=== PATIENT | male | born 1975 | race Caucasian/White ===

== ENCOUNTER → 2019-11-19 12:21 | Outpatient (CLI) | payer OTHER, SELFPAY ==
--- NOTE | 2019-11-19 12:26 | DI.CT.S_ITS ---
PROCEDURE: CT LE LT W CON INDICATIONS: Other specified acquired deformities of musculoske TECHNIQUE: Noncontrast 1-1.5 mm axial sections acquired from above the tibiotalar joint to the bottom of the calcaneus, with coronal and sagittal reformats. COMPARISON: None. FINDINGS: Image quality: Excellent. Bones: No fracture identified. Posterior calcaneal spurring. Chronic corticated ossicle seen adjacent to the anterior aspect of the lateral malleolus. This measures 9 mm Subchondral cystic changes present within the lateral aspect of the talar dome. Soft tissues: Unremarkable appearance of the muscles and visualized tendons. No tibiotalar joint effusion identified IMPRESSION: Prominent subchondral cystic changes involving the lateral talar dome. Further evaluation with MRI could be performed as clinically warranted Posterior calcaneal spurring Chronic corticated ossicle seen adjacent to the anterior aspect of the lateral malleolus. Recommend clinical correlation to exclude possibility of anterolateral impingement. Dictated by: Mode Anderson M.D. on 11/19/2019 at 15:54 Approved by: Mode Anderson M.D. on 11/19/2019 at 16:05
== END ==
PROVIDERS: Referring Provider Podiatrist; Visit Provider Podiatrist
DX: M95.8 Other specified acquired deformities of musculoskeletal system (principal); M77.32 Calcaneal spur, left foot
CPT/HCPCS: 73700

== ENCOUNTER → 2020-01-06 07:32 | Outpatient (CLI) | payer OTHER, SELFPAY ==
--- NOTE | 2020-01-06 | DI.MRI.S_ITS ---
PROCEDURE: MR ANKLE LT WO CON INDICATIONS: Other instability, left ankle TECHNIQUE: Noncontrast sagittal T1 spin echo and T2 fast spin echo with fat saturation, axial proton density fast spin echo and T2 fast spin echo with fat saturation, coronal T1 spin echo and T2 fast spin echo with fat saturation through the ankle/hindfoot. COMPARISON: [facility], CT, CT LE LT WO CON, 11/19/2019, 12:21. FINDINGS: Image quality: Excellent. Bones and joints: Multiple subcortical cystic areas are seen involving lateral aspect of talar dome weight-bearing portion and measures in aggregate 7 x 6 x 13 mm in size. Mild to moderate surrounding marrow edema is seen. Finding is concerning for osteochondral lesions involving the lateral talar dome. No other area of abnormal marrow signal is seen. No fracture or dislocation. Physiologic amount of fluid is seen in tibiotalar joint and subtalar joint. No suspicious intraosseous lesion. No evidence of hindfoot coalition. Medial structures: The posterior tibialis, flexor digitorum longus, and flexor hallucis longus tendons are intact. The posterior tibial neurovascular bundle appears normal within the tarsal tunnel, without extrinsic mass effect. The deep layer (anterior and posterior tibiotalar ligaments) and superficial layer (tibionavicular, tibiospring, and tibiocalcaneal ligaments) of the deltoid ligament appear normal. The spring ligament components (superomedial calcaneonavicular, medioplantar oblique calcaneonavicular, and inferoplantar longitudinal ligaments) are intact. Lateral structures: The anterior talofibular, calcaneofibular, and posterior talofibular ligaments appear intact. More superiorly, the anterior and posterior tibiofibular ligaments appear intact, as is the intermalleolar ligament. The tibiofibular syndesmosis is normal in width at 2 mm or less. The peroneus longus and brevis tendons demonstrate normal location and morphology. Adjacent bony peroneal tubercle and retrotrochlear prominence are normal in size. The sinus tarsi demonstrates normal fatty signal, without edema, fibrosis, or cyst formation. Visualized sinus tarsi components (cervical ligament, interosseous talocalcaneal ligament, roots of the inferior extensor retinaculum) appear normal. The calcaneonavicular and calcaneocuboid components of the bifurcate ligament appear intact. The dorsal calcaneocuboid ligament appears intact. Anterior structures: The tibialis anterior, extensor hallucis longus, and extensor digitorum longus tendons appear intact. The dorsal talonavicular ligament appears intact. Posterior and plantar structures: Achilles tendon is intact. Medial and lateral bands of the plantar fascia are of normal thickness. No abductor digiti quinti muscle atrophy to suggest Villafana neuropathy. IMPRESSION: 1. Osteochondral lesions involving lateral weight-bearing portion of talar dome measures in aggregate 7 x 6 x 13 mm in size. 2. Ankle tendons and ligaments are intact. Dictated by: Femi Huston M.D. on 01/06/2020 at 9:33 Approved by: Femi Huston M.D. on 01/06/2020 at 10:05
== END ==
PROVIDERS: Referring Provider Orthopaedic Surgery Foot and Ankle Surgery; Visit Provider Orthopaedic Surgery Foot and Ankle Surgery
DX: M25.372 Other instability, left ankle (principal); M93.972 Osteochondropathy, unspecified, left ankle and foot
CPT/HCPCS: 73721

== ENCOUNTER 2020-03-06 07:58 | Day surgery (SDC) | payer OTHER, SELFPAY ==
[2020-03-03 11:44] VITALS: BMI 34.0
[2020-03-06] VITALS (7 sets, daily range): BP systolic 110–134; BP diastolic 63–84; PULSE 72–91; RESP 12–16; TEMP 36.4–36.9; O2SAT 92–99; BMI 34.0
[2020-03-06] MEDS: LACTATED RINGERS 1,000 ML 42 ML IV ×2 (08:32→11:42)
--- NOTE | 2020-03-06 08:36 | PM.PREOP ---
Pre-operative Note COVID-19 COVID-19 status: Result pending Interval Note History & Physical reviewed/Exam performed by Physician: Yes Changes to H&P: No
--- NOTE | 2020-03-06 09:44 | SUR.OPER ---
Addendum entered by Alida Lomeli R.N. 03/06/20 10:36: operative leg place on well leg whiteside padded with gel pad and secured with elastic bandage, lower leg prepped into field. Original Note: Supine on padded OR bed, head on pillow, arms secured on padded arm boards at <90 degrees abduction, legs uncrossed, safety belt at thigh, tape over blanket over right lower leg.
[2020-03-06] MEDS: MIDAZOLAM 2 MG/2 ML VIAL IV (09:54)
[2020-03-06] MEDS: fentaNYL 100 MCG/2 ML INJ IV (09:54)
[2020-03-06] MEDS: CEFAZOLIN 2 GM/100 ML FROZ.PIGGY IV (10:02)
--- NOTE | 2020-03-06 10:03 | SUR.PREOP ---
Block start time [0950] . Monitoring initiated and maintained throughout procedure. Oxygen and medications given per anesthesiologist instructions. Patient remained stable throughout procedure, no adverse reactions noted. Block end time [1002 ].
[2020-03-06] MEDS: SODIUM CHLORIDE IRRIG SOLUTION 3,000 ML, EPINEPHrine 1 MG IRR (11:23)
[2020-03-06] MEDS: BUPIVACAINE 0.25% W/ EPI (PF) 10 ML VIAL 20 ML INJ (12:22)
--- NOTE | 2020-03-06 15:15 | PM.OP.1 ---
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 He has a large osteochondral defect of the lateral talar dome on the left ankle. As this is a cystic lesion and a critical size lesion measuring approximately 1.08 by 1.61 mm. Patient has chronic pain despite conservative treatment with a critical size defect is indicated for treatment and cartilage replacement procedures. We discussed with a critical size and the fact that a microfracture alone has been found to be unsatisfactory minimal cases and the recommended for cartilage allograft or autograft if possible. We discussed options for this. Based on the size and location of the defect I have recommended microfracture and cartilage allograft procedure with micronized cartilage and fibrin glue. He has elected to proceed. The risks and benefits of the procedure have been discussed with the patient even opportunity to ask questions. The risks of surgery include but are not limited to infection, malunion, nonunion, persistence of pain, damage to nerves and blood vessels, posttraumatic arthritis, DVT, PE, cardiopulmonary complications and . The patient expressed a thorough understanding of the risks and benefits of surgery and has elected to proceed. Consent was signed in the office. Surgeon: Freida Choudhury Regional Engagement Consultant: Susan Morton Anesthesia Type: General, Peripheral nerve block and Local Operative Notes Findings: Large left lateral talar dome osteochondral lesion of the talus with a unstable cartilage flaps. This was debrided revealing a lateral cartilage lesion measuring approximately 1 x 1.6 mm. There was also extensive synovitis in the anterior ankle joint this was debrided. Once a stable borders were established for the osteochondral lesion this was micro fractured and then cartilage graft mixed with bone marrow concentrate was placed into the defect and covered with fibrin glue. Closure Type: primary Specimen(s): none sent Estimated Blood Loss (mL): 10 Blood products transfused: none Tourniquet time (min): 90 Procedure in detail: The patient was seen in the preoperative area the site of surgery was marked informed consent confirmed. The patient underwent a regional block with the anesthesia team for postoperative pain control. The patient was then brought back to the operating room and placed on the operative table in supine position. General anesthetic was administered. Well-padded thigh tourniquet was placed on the left thigh. Ipsilateral thigh bump was also placed. An SCD was on the contralateral lower extremity. The left thigh was placed into the thigh whiteside this was well padded with a gel. Additionally the left iliac crest was prepped out in preparation for the aspirate. A formal time-out procedure was performed confirming the patient's side and site of surgery administration of appropriate preoperative antibiotics and available implants and allograft in the room. Additionally the Jm system for bone marrow aspirate concentrate was available and in the room. All were in agreement. Next attention was turned to the iliac crest on the left side. A 15 blade was used for small stab incision in the specialized Jm system jam she had the needle had been primed with the an anticoagulant and 0 trocar was placed down to the bone this was advanced using the mallet at once the cortex was penetrated 30 cc of bone marrow aspirate were obtained followed by a 2nd 30 cc in a different syringe. The bone marrow aspirate was then passed off of the OR to be run through the Jm bone marrow concentration units to obtain the BMAC. On the back table the BMAC was then mixed with the BioCartilage allograft to achieve the desired consistency. Iliac crest stab incision was closed with 1 nylon suture and a dressing with Xeroform and the gauze and Tegaderm was placed. Then attention was turned to the ankle arthroscopy procedure. The landmarks for the ankle joint and medial and lateral portals were marked out on the ankle. Course of the tibialis tendon was marked out over the ankle as well as a palpation marking out the superficial peroneal nerve. An Esmarch was used for exsanguination the tourniquet on the thigh raised to 250 mm mercury. The ankle joint was then insufflated with 10 cc of normal saline. The skin knife was used just through the skin at the medial portal site then a hemostat in the neck and spread technique was used to penetrate the joint. The trocar was introduced for the 2 7 scope. And the camera was introduced. Diagnostic and arthroscopy was undertaken. There was significant synovitis anteriorly a both medial and laterally along the ankle joint. Advancing into the joint using the a noninvasive ankle distractor system the lateral osteochondral defect was visible this was a large unstable cartilage flap. Probe was used to mobilize this. Next under a direct visualization technique the lateral portal was established using 1st an 18 gauge needle then a neck and spread technique. The shaver was introduced debriding the anterior synovitis medially and laterally. And medial gutter was and suspected and normal. Medial talar dome was also normal and there were no significant lesions to the tibial cartilage. At this point the combination of ring and standard curettes were utilized to remove the unstable cartilage flap at the lateral talar dome osteochondral lesion. This was able to break off large pieces of the unstable cartilage flaps which were then removed with the grasper and the shaver alternative actively. Once stable borders of the osteochondral lesion reestablished again using the ring curette and standard curette the lesion was measured this was approximately 1 x 1.6 using the probe and correlated with MRI estimate. Shaver was brought in to remove the fibrous calcified cartilage and then microfracture was performed with the 90 degree and 30 degree microfracture awls. Bony bleeding was obtained. At this point the water was turned off and the joint was dried out. This was done with the Jackson tip suction as well as numerous sponges provided in the cartilage allograft Arthrex bio cartilage kit. Once appropriate joint preparation was completed the previously prepared mix of bio cartilage allograft was introduced into the lateral portal and the lateral osteochondral defect. Very small amount of bio cartilage was placed within the defect and this was smoothed using the paddle employee representative and device. Once a smooth coating approximately 1 mm under the cartilage surface was obtained the fibrin glue (tissel) was introduced and just a drop or 2 was placed over the top of the lesion this spread out nicely. The ankle was left undisturbed for 5 minutes while the fibrin glue cured and then taken through a range of motion. This point instruments removed from the ankle and the 1 cc of remaining bone marrow aspirate concentrate was injected into the ankle on with local anesthetic. The portals were closed with 3-0 nylon suture in standard fashion. Tourniquet was released and of the leg was removed from the well leg whiteside. Sterile dressings were placed followed by A well-padded splint. The patient was woken from anesthesia and taken to recovery room in good condition. There no immediate complications from this procedure. All counts were correct. Complications: none Post-operative Condition: stable Plan for aftercare: Nonweightbearing x6 weeks on the left lower extremity. In 2 weeks he will come back to clinic for suture removal he will be placed into a boot at that time and start gentle range of motion. Aspirin for DVT prophylaxis. Pain medication was provided as a prescription today with Percocet. May take ibuprofen or regular Tylenol as needed.
== END 2020-03-06 13:23 | disposition home or self-care (01) ==
PROVIDERS: Referring Provider Orthopaedic Surgery Foot and Ankle Surgery; Visit Provider Orthopaedic Surgery Foot and Ankle Surgery
PROC: (CPT 29892; principal; 2020-03-06 09:45)
DX: M93.272 Osteochondritis dissecans, left ankle and joints of left foot (principal); M76.72 Peroneal tendinitis, left leg; M25.372 Other instability, left ankle; I10 Essential (primary) hypertension; E11.9 Type 2 diabetes mellitus without complications; M19.90 Unspecified osteoarthritis, unspecified site; G43.909 Migraine, unspecified, not intractable, without status migrainosus
CPT/HCPCS: 29892; 38232; 64450; J0171; J0690; J1100; J2250; J2405; J2704; J3010

== ENCOUNTER → 2020-08-28 13:19 | Outpatient (CLI) | payer OTHER, SELFPAY ==
[2020-08-28 13:49] LABS: COVID19 -Nasal RAPID POSITIVE (Negative)
== END ==
PROVIDERS: PCP Registered Nurse; Visit Provider Registered Nurse
DX: U07.1 COVID-19 (principal); R05 Cough
CPT/HCPCS: 87635